=== PATIENT | male | born 1960 | race Caucasian/White ===

== ENCOUNTER 2016-08-18 17:47 | Emergency (ER) | payer OTHER ==
[2016-08-18 17:53] VITALS: BP 142/72; PULSE 54; TEMP 98; BMI 27.3
[2016-08-18] MEDS ORDERED: IBUPROFEN 400 MG TABLET (FP) PO ONE (18:58)
[2016-08-18] MEDS ORDERED: IBUPROFEN 600 MG TABLET (FP) PO ONE (19:03)
--- NOTE | 2016-08-18 19:11 | PDOC ---
[id number] RT SHOULDER PAIN Time Seen by Provider: 08/18/16 18:02 History Source: Patient Exam Limitations: No Limitations - History of Present Illness Initial Comments: 08/18/16 19:05 56 yr male fell last night on right shoulder pt has pain today. Pt has limited ROM due to pain pt took advil last night. Past History - Past Medical History Allergies/Adverse Reactions: Allergies Allergy/AdvReac Type Severity Reaction Status Date / Time No Known Allergies Allergy Verified 08/18/16 17:54 Home Medications: Ambulatory Orders Naproxen [Naprosyn -] 500 mg PO BID PRN #14 tablet 08/18/16 Other medical history: denies - Psycho/Social/Smoking Cessation Hx Suicidal Ideation: No Smoking History: Never smoked Information on smoking cessation initiated: No Review of Systems - Review of Systems Able to Perform ROS?: Yes Is the patient limited Telugu proficient: No Constitutional: No: Symptoms Reported HEENTM: No: Symptoms Reported Respiratory: No: Symptoms reported Cardiac (ROS): No: Symptoms Reported ABD/GI: No: Symptoms Reported : No: Symptoms Reported Musculoskeletal: Yes: See HPI *Physical Exam - Vital Signs Last Vital Signs Temp Pulse Resp BP Pulse Ox 98 F 54 L 18 142/72 100 08/18/16 17:51 08/18/16 17:51 08/18/16 17:51 08/18/16 17:51 08/18/16 17:51 - Physical Exam General Appearance: Yes: Nourished, Appropriately Dressed HEENT: positive: EOMI, ANILA, Normal ENT Inspection, TMs Normal, Pharynx Normal Neck: positive: Supple. negative: Tender Respiratory/Chest: positive: Lungs Clear, Normal Breath Sounds Cardiovascular: positive: Regular Rhythm, Regular Rate Musculoskeletal: positive: Normal Inspection Extremity: positive: Normal Inspection, Tender (anterior shoulder right side, no humeral tenderness, no swelling or step off). negative: Swelling ED Treatment Course - RADIOLOGY Radiology Studies Ordered: Category Date Time Status SHOULDER-RIGHT [RAD] Stat Radiology 08/18/16 17:58 Taken Medical Decision Making - Medical Decision Making 08/18/16 19:06 cc: right shoulder injury will r/o fracture motrin for pain 08/18/16 19:17 pt [address] here will give ibuprofen 800mg now and I have offered to send percocet to [facility] but patient refused percocet or any stronger pain medicine. I have given patient a sling and pt is to follow with the orthopedist. Pt agrees with the plan of care and understands the discharge plan. *DC/Admit/Observation/Transfer Diagnosis at time of Disposition: Shoulder injury Qualifiers: Encounter type: initial encounter Laterality: right Qualified Code(s): S49.91XA - Unspecified injury of right shoulder and upper arm, initial encounter - Discharge Dispostion Disposition: HOME Condition at time of disposition: Good - Prescriptions Prescriptions: Naproxen [Naprosyn -] 500 mg PO BID PRN #14 tablet PRN Reason: Pain - Referrals Referrals: Chava Hall MD [Staff Physician] - - Patient Instructions Additional Instructions: use the sling while awake remove to sleep take naprosyn as directed for pain apply ice every 2hrs for 20 minutes follow with the orthopedist Dr. Hall for follow up
== END 2016-08-18 19:27 | disposition home or self-care (01) ==
LOC: JERFT 17:47
DX: S49.91XA Unspecified injury of right shoulder and upper arm, initial encounter (principal); W19.XXXA Unspecified fall, initial encounter; Y93.89 Activity, other specified; Y92.89 Other specified places as the place of occurrence of the external cause
CPT/HCPCS: 73030-TC-RT; 99281-25

== ENCOUNTER 2017-06-13 08:41 | Day surgery (SDC) | payer OTHER ==
[2017-06-13 09:46] VITALS: BMI 29.0
[2017-06-13] MEDS ORDERED: PROPOFOL 20 ML ONE ×2 (10:10)
[2017-06-13 10:49] VITALS: TEMP 97.5
[2017-06-13 11:54] VITALS: BP 114/60; PULSE 57
--- NOTE | 2017-06-15 14:09 | PATH ---
Surgical Pathology Report Patient Name: [facility]. Rec. #: [id number] /Age/Gender: 1960 (Age: 56) / M Account: [id number] Location: U-ENDOSCOPY Taken: 06/13/2017 Received: 06/13/2017 Reported: 06/15/2017 Physicians: Richie Moser M.D. Specimen(s) Received POLYP SIGMOID Clinical History Colon cancer screening Diverticulosis, sigmoid polyp Final Diagnosis SIGMOID COLON, POLYP, BIOPSY: POLYPOID COLONIC MUCOSA WITH SMALL LYMPHOID AGGREGATE. Electronically Signed Cris Valerio M.D. Gross Description Received in formalin, labeled "biopsy sigmoid polyp" is a fernandez, irregular portion of soft tissue measuring 0.3 cm. in greatest dimension. The specimen is submitted in toto in one cassette. 06/13/201706/13/2017
== END 2017-06-13 11:40 | disposition home or self-care (01) ==
LOC: JASU-ENDO 08:41
PROVIDERS: ATTEND Internal Medicine Gastroenterology
PROC: 0DJD8ZZ Inspection of Lower Intestinal Tract, Via Natural or Artificial Opening Endoscopic (ICD-10-PCS; principal; 2017-06-13 09:30)
DX: Z12.11 Encounter for screening for malignant neoplasm of colon (principal); K57.30 Diverticulosis of large intestine without perforation or abscess without bleeding
CPT/HCPCS: 88305-TC

== ENCOUNTER 2017-07-11 09:12 | Day surgery (SDC) | payer OTHER ==
[2017-07-11] MEDS ORDERED: PROPOFOL 20 ML ONE ×2 (10:07)
[2017-07-11 10:15] VITALS: BMI 29.3
[2017-07-11 11:04] VITALS: TEMP 98.3
[2017-07-11 12:07] VITALS: BP 100/55; PULSE 51
--- NOTE | 2017-07-12 16:58 | PATH ---
Surgical Pathology Report Patient Name: ROCCO ANGEL [facility]. Rec. #: [id number] /Age/Gender: 1960 (Age: 57) / M Account: [id number] Location: U-ENDOSCOPY Taken: 07/11/2017 Received: 07/11/2017 Reported: 07/12/2017 Physicians: Richie Moser M.D. Specimen(s) Received A: BX ANTRUM B: BX PROXIMAL BODY Clinical History Preoperative diagnosis: Early satiety, family history of gastric cancer Postoperative diagnosis: Gastritis, rule out H. Pylori Final Diagnosis A. STOMACH, ANTRUM, BIOPSY: GASTRIC ANTRAL MUCOSA WITH SEVERE CHRONIC ACTIVE GASTRITIS. IMMUNOHISTOCHEMICAL STAIN FOR H. PYLORI IS POSITIVE (MANY). B. STOMACH, PROXIMAL BODY, BIOPSY: GASTRIC BODY MUCOSA WITH MODERATE CHRONIC ACTIVE GASTRITIS. IMMUNOHISTOCHEMICAL STAIN FOR H. PYLORI IS POSITIVE (RARE). Electronically Signed Cris Valerio M.D. Gross Description A. Received in formalin, labeled "biopsy antrum" are 2 fernandez, irregular portions of soft tissue measuring 0.6 and 0.7 cm. in greatest dimension. The specimens are submitted in toto in one cassette. B. Received in formalin, labeled "biopsy proximal body" are 2 fernandez, irregular portions of soft tissue measuring 0.1 and 0.5 cm. in greatest dimension. The specimens are submitted in toto in one cassette. 07/11/201707/11/2017
== END 2017-07-11 12:07 | disposition home or self-care (01) ==
LOC: JASU-ENDO 09:12
PROVIDERS: ATTEND Internal Medicine Gastroenterology
PROC: 0DB68ZX Excision of Stomach, Via Natural or Artificial Opening Endoscopic, Diagnostic (ICD-10-PCS; principal; 2017-07-11 09:30)
DX: R68.81 Early satiety (principal); Z80.0 Family history of malignant neoplasm of digestive organs; K29.61 Other gastritis with bleeding
CPT/HCPCS: 88305-TC; 88342-TC

== ENCOUNTER 2017-10-10 16:29 | Emergency (ER) | payer OTHER ==
[2017-10-10 16:38] VITALS: BP 132/86; PULSE 76; BMI 28.4
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
[2017-10-10] MEDS ORDERED: CYCLOBENZAPRINE HCL 10 MG TABLET (FP) PO ONE (17:34)
[2017-10-10] MEDS ORDERED: KETOROLAC TROMETHAMINE 60 MG/2 ML VIAL IM ONE (17:34)
[2017-10-10] MEDS ORDERED: KETOROLAC TROMETHAMINE 60 MG/2 ML VIAL ONE (17:37)
[2017-10-10] MEDS ORDERED: CYCLOBENZAPRINE HCL 10 MG TABLET (FP) ONE (17:37)
== END 2017-10-10 18:41 | disposition home or self-care (01) ==
LOC: JERFT 16:29
PROC: 3E0233Z Introduction of Anti-inflammatory into Muscle, Percutaneous Approach (ICD-10-PCS; principal; 2017-10-10)
DX: S13.4XXA Sprain of ligaments of cervical spine, initial encounter (principal); M25.511 Pain in right shoulder; M25.512 Pain in left shoulder; M25.561 Pain in right knee; M25.562 Pain in left knee; V47.5XXA Car driver injured in collision with fixed or stationary object in traffic accident, initial encounter; Y92.411 Interstate highway as the place of occurrence of the external cause; W22.19XA Striking against or struck by other automobile airbag, initial encounter; Y93.89 Activity, other specified; Y99.8 Other external cause status
CPT/HCPCS: 72100-TC-FY; 73030-TC-LT-FY; 73560-TC-LT-FY; 73560-TC-RT-FY; 96372; 99281-25

== ENCOUNTER 2022-09-21 04:17 | Day surgery (SDC) | payer OTHER ==
[2022-09-16 15:15] VITALS: BMI 26.6
[2022-09-21 11:35] VITALS: RESP 18
[2022-09-21] MEDS ORDERED: ceFAZolin SODIUM 1 GM VIAL IVPB ONE (13:28)
[2022-09-21] MEDS ORDERED: ONDANSETRON 4 MG/2 ML VIAL IVPUSH PRN (14:38)
[2022-09-21] MEDS ORDERED: oxyCODONE HCL 5 MG TABLET PO PRN (14:38)
[2022-09-21 17:48] VITALS: BP 125/68; PULSE 51; TEMP 97.8
== END 2022-09-21 17:40 | disposition home or self-care (01) ==
LOC: JASU-SURG 04:17
PROVIDERS: ATTEND Urology
PROC: 0VT08ZZ Resection of Prostate, Via Natural or Artificial Opening Endoscopic (ICD-10-PCS; principal; 2022-09-21 13:00)
DX: N40.1 Benign prostatic hyperplasia with lower urinary tract symptoms (principal); R33.9 Retention of urine, unspecified
CPT/HCPCS: 88305-TC; 94760